=== PATIENT | female | born 1960 ===

== ENCOUNTER 2019-06-04 06:03 | Day surgery (SDC) | payer BC ==
[~2019-06-04 06:03] MED LIST: Dextrose 5%-0.45% NaCl 1,000 ML IV SCH
[2019-06-04] MEDS ORDERED: fentaNYL 100 MCG/2 ML SDV IV ONE ×3 (06:04→06:38)
[2019-06-04] MEDS ORDERED: Midazolam 1 MG/ML 2 ML SDV IV ONE ×7 (06:04→06:47)
[2019-06-04] MEDS ORDERED: fentaNYL 100 MCG/2 ML SDV ONE (06:15)
[2019-06-04] MEDS ORDERED: Midazolam 1 MG/ML 2 ML SDV ONE (06:15)
[2019-06-04] MEDS ORDERED: Benzocaine 20% Topical Spray UD MUCMEM ONE ×2 (06:19→06:37)
--- NOTE | 2019-06-04 10:16 | OR ---
DATE: 06/04/2019 PREOPERATIVE DIAGNOSIS: Gastroesophageal reflux disease. POSTOPERATIVE DIAGNOSIS: Gastroesophageal reflux disease. PROCEDURES: Esophagogastroduodenoscopy. ANESTHESIA: Conscious sedation with IV Versed and fentanyl. SPECIMEN: None. INTRODUCTION: This 58-year-old female has increasing GERD symptoms. PROCEDURE IN DETAIL: After adequate preparation, a gastroscope was inserted into the esophagus. This was passed down to the EG junction. She shows about a 2 cm hiatal hernia and a widely patent lower esophageal sphincter. There was no evidence of erosive esophagitis, however. The scope was advanced into the stomach. Both forward and retroflexed views were done and are normal. A photograph of the hiatal hernia from the gastric side was taken. The scope was advanced through the pylorus into the duodenum and the first and second parts are normal. Air was suctioned from the stomach and the scope removed. OPERATIVE FINDINGS: Small hiatal hernia. RECOMMENDATION: Follow up as needed. Continue medical treatment for her GERD. [facility] /[id number]
--- NOTE | 2019-06-04 10:34 | OR ---
DATE: 06/04/2019 PREOPERATIVE DIAGNOSIS: Positive Cologuard test. POSTOPERATIVE DIAGNOSIS: Positive Cologuard test. PROCEDURE: Total colonoscopy. ANESTHESIA: Conscious sedation with IV Versed and fentanyl. SPECIMEN: None. OPERATIVE FINDINGS: Significant sigmoid diverticula, otherwise normal. Few small internal hemorrhoids. INDICATION FOR PROCEDURE: This 58-year-old female had a positive Cologuard test. She has not had a prior colonoscopy. PROCEDURE IN DETAIL: After adequate preparation, a colonoscope was inserted into the rectum. This was easily passed all the way to the cecum. Confirmation of the cecum was made by visualization of the ileocecal valve, light shining through the right lower quadrant, and by palpation. The bowel prep was good. On withdrawal of the scope, the only abnormality noted was some moderate amount of sigmoid diverticula and a few internal hemorrhoids. Otherwise, she had no evidence of tumor growth or polyps. Air was suctioned from the colon and the scope removed. [facility] /[id number]
== END 2019-06-04 08:32 | disposition home or self-care (01) ==
LOC: DL.ENDO 06:03
PROVIDERS: ATTEND Surgery
DX: R19.5 Other fecal abnormalities (principal); K21.9 Gastro-esophageal reflux disease without esophagitis; K57.30 Diverticulosis of large intestine without perforation or abscess without bleeding; K64.8 Other hemorrhoids
CPT/HCPCS: 43235; 45378; A9270; J2250; J3010; J7042; G0121